=== PATIENT | male | born 1990 | race Caucasian/White ===

== ENCOUNTER 2020-01-28 18:19 | Emergency (ER) | payer MEDICAID, SELFPAY ==
[2020-01-28] VITALS (12 sets, daily range): BP systolic 141–152; BP diastolic 76–97; PULSE 60–83; RESP 18; TEMP 37.1; O2SAT 95–98
--- NOTE | 2020-01-28 18:40 | ED.GENADUL_ITS ---
Discharge Plan Disposition Patient Disposition: HOME Condition: Stable Discharge Details Chief Complaint: Nausea/Vomit/Diar Clinical Impression: Diarrhea, Abdominal pain Primary Care Provider: Unknown,Unknown ED Provider: June Mullins Home Meds and New Rx's Prescriptions: New dicyclomine 20 mg tablet 20 mg PO TID PRN (Reason: abdominal pain) Qty: 10 RF: 0 Continued loperamide [Imodium A-D] 2 mg Tablet See Rx Instructions .ROUTE .COMPLEX RF: 0 pantoprazole 40 mg Tablet,Delayed Release (Dr/Ec) 40 mg PO DAILY RF: 0 hyoscyamine sulfate [Oscimin] 0.125 mg Tablet 0.35 mg PO BID RF: 0 lamotrigine 100 mg Tablet 100 mg PO HS RF: 0 buspirone 15 mg Tablet 15 mg PO TID RF: 0 Discharge Instructions Instructions: Acute Diarrhea (ED), Abdominal Pain (ED) Additional Instructions: Drink plenty of fluids and get plenty of rest. Take the dicyclomine as needed and directed for abdominal pain. You can also take Tylenol as needed and directed for pain. Follow-up with your primary care doctor in 1 week. Return to the emergency department with any worsening or new concerning symptoms. Discharge Data Discharge Physician: June Mullins Medical Decision Making 1814 -- 29-year-old male with a history of GERD, IBS presents with diarrhea and abdominal pain for the past week. Blood pressure mildly hypertensive, otherwise vitals within normal limits. He is talkative and appears nontoxic. Abdomen soft but tender across lower aspect. Differential diagnosis includes colitis, gastroenteritis, IBS exacerbation. Will check screening labs, CT abdomen and pelvis and give a dose of Tylenol IV and Bentyl. 1940 --nursing unable to obtain labs. CT obtained and negative. 2009 --labs reviewed and unremarkable. Normal white blood cell count. Normal potassium. Patient reassessed -states he feels much better. We will send home with Bentyl tabs as well as prescription. Patient stated he needed toilet paper. He was given 2 rolls of toilet paper as well as crackers. He was placed on care management list to arrange for a follow-up appointment with his PCP. Usual and customary return precautions given prior to discharge. Medical Records Medical records reviewed: Yes I reviewed the patient's medical records. Imaging Data Radiologic Study: Radiologist's impression: CT Abdomen And Pelvis With Contrast Exam date and time: 01/28/2020 6:30 PM Age: 29 years old Clinical indication: Abdominal pain; Localized; Lower TECHNIQUE: Imaging protocol: Computed tomography of the abdomen and pelvis with intravenous contrast. Radiation optimization: All CT scans at this facility use at least one of these dose optimization techniques: automated exposure control; mA and/or kV adjustment per patient size (includes targeted exams where dose is matched to clinical indication); or iterative reconstruction. Contrast material: [id number]; Contrast volume: 100 ml; Contrast route: IV LEFT WRIST 20G; COMPARISON: No relevant prior studies available. FINDINGS: Liver: Normal. No mass. Gallbladder and bile ducts: Normal. No calcified stones. No ductal dilation. Pancreas: Normal. No ductal dilation. Spleen: Normal. No splenomegaly. Adrenals: Normal. No mass. Kidneys and ureters: Normal. No hydronephrosis. Stomach and bowel: Unremarkable. No obstruction. No mucosal thickening. Appendix: Normal appendix. Intraperitoneal space: Unremarkable. No free air. No significant fluid collection. Vasculature: Unremarkable. No abdominal aortic aneurysm. Lymph nodes: Unremarkable. No enlarged lymph nodes. Bladder: Unremarkable as visualized. Reproductive: Unremarkable as visualized. Bones/joints: Unremarkable. No acute fracture. Soft tissues: Unremarkable. IMPRESSION: No acute findings. Lab Data Lab results reviewed: Yes I reviewed the patient's lab results. Labs: Laboratory Tests Range/Units 01/28/20 01/28/20 19:34 19:34 WBC (4.4-10.8) k/cumm 6.98 RBC (4.50-6.00) m/cumm 5.18 Hgb (13.5-17.5) g/dL 15.0 Hct (40.0-50.0) % 43.0 MCV (80-95) fL 83.0 MCH (27.0-33.0) pg 29.0 MCHC (32.0-36.0) g/dL 34.9 RDW (11.8-14.1) % 12.1 Plt Count (130-400) x1000/uL 176 MPV (8.0-11.0) fL 9.5 Immature Gran % % 0.4 Neutrophils % 63.2 Lymphocytes % 26.1 Monocytes % 8.5 Eosinophils % 1.7 Basophils % 0.1 Absolute Neutrophils (1.2-6.7) k/cumm 4.41 Absolute Lymphocytes (1.2-3.4) k/cumm 1.82 Absolute Monocytes (0.11-0.7) k/cumm 0.59 Absolute Eosinophils (0.0-0.7) k/cumm 0.12 Absolute Basophils (0.0-0.2) k/cumm 0.01 Sodium (136-145) mmol/L 135 L Potassium (3.5-5.1) mmol/L 4.4 Chloride (98-107) mmol/L 102 Carbon Dioxide (21.0-32.0) mmol/L 24.8 Anion Gap (3-11) mmol/L 8.2 BUN (7-18) mg/dL 18 Creatinine (0.70-1.30) mg/dL 0.87 Estimated GFR/1.73 m2 (mL/min/1.73m2) >= 60.00 Glucose (74-106) mg/dL 96 Calcium (8.5-10.1) mg/dL 8.9 Total Bilirubin (0.2-1.0) mg/dL 0.8 AST (15-37) U/L 20 ALT (16-63) U/L 41 Alkaline Phosphatase (46-116) U/L 59 Total Protein (6.4-8.2) g/dL 6.8 Albumin (3.4-5.0) g/dL 3.8 Lipase (73-393) U/L 42 HPI General Mode of arrival: ambulatory . Date/Time Provider Initiated Documentation: 01/28/20 18:40 . Limitations to Documentation: no limitations . Information obtained by: patient . HPI Narrative: Patient is a 29-year-old male with a history of GERD and IBS who presents to the ED w/ a c/o multiple episodes of diarrhea over the past week. He states it is mainly been watery and brown. He states he is unable to count the amount of episodes he has had every day. He states he has a history of IBS and occasionally has diarrhea with this but states is much worse. He does admit to occasional lower abdominal pain but denies any at present. He denies any fever, nausea, vomiting, urinary symptoms. He denies any recent travel, recent antibiotics, recent exposure to coronavirus or recent COVID testing. Related Data Home Medications Medication Instructions Recorded Confirmed buspirone 15 mg PO TID 01/28/20 01/28/20 dicyclomine 20 mg PO TID PRN #10 tab 01/28/20 hyoscyamine sulfate [Oscimin] 0.35 mg PO BID 01/28/20 01/28/20 lamotrigine 100 mg PO HS 01/28/20 01/28/20 loperamide [Imodium A-D] See Rx Instructions .ROUTE .COMPLEX 01/28/20 01/28/20 pantoprazole 40 mg PO DAILY 01/28/20 01/28/20 Previous Rx's Medication Instructions Recorded dicyclomine 20 mg PO TID PRN #10 tab 01/28/20 General Stated Complaint: Nausea/Vomit/Diar SHERI: 3 Review of Systems All systems reviewed & are unremarkable except as noted in HPI and below Constitutional Constitutional: Reports as per HPI, Denies chills and Denies fever(s) Eyes Eyes: Denies blurry vision ENT Ears, Nose, Mouth, and Throat: Denies dizziness, Denies sore throat and Denies throat swelling Cardiovascular Cardiovascular: Denies chest pain and Denies dyspnea Respiratory Respiratory: Denies cough and Denies dyspnea Gastrointestinal Gastrointestinal: Reports abdominal pain, Reports diarrhea and Denies vomiting Genitourinary Genitourinary: Denies hematuria and Denies dysuria Musculoskeletal Musculoskeletal: Denies back pain and Denies numbness Integumentary/Breasts Skin/Breast: Denies lesions and Denies rash Neurologic Neurologic: Denies dizziness, Denies localized weakness and Denies numbness Allergic/Immunologic Allergic/Immunologic: Denies throat swelling [facility] Medical History (Updated 01/28/20 @ 20:09 by June Mullins DO) ADHD (Acute) Asperger's syndrome (Acute) GERD (gastroesophageal reflux disease) (Chronic) History of IBS (Acute) Surgical History No significant past surgical history (Acute) Social History Smoking/Tobacco Use Status: Never Alcohol Intake: current Alcohol Intake frequency: holidays/special occasions only Drug use: Occasionally Substance use type: marijuana Exam Const General: cooperative, healthy appearing and no acute distress HENMT Head: normal to inspection Face and sinus: normal facial exam Eyes General: appearance normal, both eyes and all related structures EOM: EOM intact bilaterally Neck Neck: normal visual inspection and No submandibular swelling Lymphatic: no lymphadenopathy noted Chest Chest: normal inspection of the chest and no tenderness Resp Effort & Inspection: normal respiratory effort and able to speak in complete sentences Auscultation: clear to auscultation bilaterally Cardio Rate: regular rate Rhythm: regular rhythm GI Inspection: normal to inspection and obesity Palpation: soft, not firm, not rigid and tender in the LLQ, in the RLQ and suprapubicly Auscultation: hypoactive bowel sounds Skin General skin exam: no rashes or lesions noted Neuro General: patient alert, patient awake and patient oriented x3 Cognition: normal cognition Speech: speech normal Motor: muscle tone normal throughout Sensory Exam: no sensory deficits noted Extrem General: normal to inspection, full ROM, capillary refill normal, no calf tenderness bilaterally and no edema Psych Appearance: grossly normal Mental Status: mental status grossly normal Speech and Movement: speech and movement normal Affect: normal affect Course Vital Signs Vital signs: Vital Signs Temperature 98.8 F 01/28/20 18:11 Pulse 83 01/28/20 18:11 Respiratory Rate 18 01/28/20 18:11 Blood Pressure 152/76 H 01/28/20 18:11 Pulse Oximetry 97 01/28/20 18:11 Temperature 98.8 F 01/28/20 18:11 Temperature Source Temporal Artery Scan 01/28/20 18:11 Pulse 83 01/28/20 18:11 Respiratory Rate 18 01/28/20 18:11 Respiratory Effort Non-Labored 01/28/20 18:13 Blood Pressure 152/76 H 01/28/20 18:11 Blood Pressure Position Sitting 01/28/20 18:11 Pulse Oximetry 97 01/28/20 18:11 Oxygen Delivery Method Room Air 01/28/20 18:11 Oxygen Flow Rate 0 01/28/20 18:11
[2020-01-28] MEDS: Omnipaque 350 MG/ML 100 ML BTL IJ (19:13)
[2020-01-28] MEDS: Normal Saline - Diluent 50 ML VIAL IV (19:13)
[2020-01-28] MEDS: Normal Saline Flush 10 ML SYR IVP (19:16)
--- NOTE | 2020-01-28 19:19 | DI.CT_ITS ---
EXAM: CT ABDOMEN PELVIS W CLINICAL HISTORY: lower abd pain, diarrhea TECHNIQUE: Imaging Protocol: Axial computed tomography images with coronal and sagittal reformatted images were created and reviewed CONTRAST MATERIAL: Intravenous: Omnipaque 350 Contrast volume:99 mL Oral: No COMPARISON: No exams were available for comparison FINDINGS: ABDOMEN: Lung Bases: Normal where visualized. Liver: Normal density. No measurable mass. Portal, Superior Mesenteric, and Splenic Veins: Unremarkable. Gallbladder and Biliary Tract: No radiodense calculus or dilation. Pancreas: Normal density, no abnormal calcifications or inflammatory process. Spleen: Normal. Adrenals: No masses seen. Kidneys: Normal size, contour and axis. No radiodense stones or obstructive uropathy. No masses seen. Abdominal Aorta: Abdominal portion non-dilated. Bowel: No obstruction or bowel wall thickening. No evidence of acute appendicitis. Peritoneal Cavity: No ascites, collection or mesenteric inflammatory response. Lymph Nodes: Within normal limits. Bones: Unremarkable. Soft Tissues: Unremarkable. PELVIS: Bladder: Symmetric distention, no gross wall thickening. Reproductive Organs: Unremarkable as visualized. Lymph Nodes: Within normal limits. Bones: Within normal limits. IMPRESSION: Unremarkable CT scan of the abdomen and pelvis. RADIATION DOSE DELIVERED: Total DLP DATA REPOSITORY: All CT scans at this facility are submitted to the National Radiology Data Registry (NRDR) Dose Index Registry (DIR) with the [employer] (ACR). RADIATION OPTIMIZATION: All CT scans at this facility use at least one of these dose optimization te chniques: automated exposure control; mA and/or kV adjustment per patient size (includes targeted exa ms where dose is matched to clinical indication); or iterative reconstruction.
[2020-01-28] MEDS: ACETAMINOPHEN 1,000 MG/100 ML BTL 400 MG IVPB (19:30)
--- NOTE | 2020-01-28 19:32 | DI.VRAD_ITS ---
PROCEDURE INFORMATION: Exam: CT Abdomen And Pelvis With Contrast Exam date and time: 01/28/2020 6:30 PM Age: 29 years old Clinical indication: Abdominal pain; Localized; Lower TECHNIQUE: Imaging protocol: Computed tomography of the abdomen and pelvis with intravenous contrast. Radiation optimization: All CT scans at this facility use at least one of these dose optimization techniques: automated exposure control; mA and/or kV adjustment per patient size (includes targeted exams where dose is matched to clinical indication); or iterative reconstruction. Contrast material: [id number]; Contrast volume: 100 ml; Contrast route: IV LEFT WRIST 20G; COMPARISON: No relevant prior studies available. FINDINGS: Liver: Normal. No mass. Gallbladder and bile ducts: Normal. No calcified stones. No ductal dilation. Pancreas: Normal. No ductal dilation. Spleen: Normal. No splenomegaly. Adrenals: Normal. No mass. Kidneys and ureters: Normal. No hydronephrosis. Stomach and bowel: Unremarkable. No obstruction. No mucosal thickening. Appendix: Normal appendix. Intraperitoneal space: Unremarkable. No free air. No significant fluid collection. Vasculature: Unremarkable. No abdominal aortic aneurysm. Lymph nodes: Unremarkable. No enlarged lymph nodes. Bladder: Unremarkable as visualized. Reproductive: Unremarkable as visualized. Bones/joints: Unremarkable. No acute fracture. Soft tissues: Unremarkable. IMPRESSION: No acute findings. Dictated and Authenticated by: Hugh Peck MD. Ordering:JERRY Watkins MD
[2020-01-28] MEDS: Dicyclomine 20 MG TAB PO (19:51)
[2020-01-28] MEDS: Normal Saline 1,000 ML 1000 ML IV (19:52)
[2020-01-28 20:01] LABS: ALT 41 U/L (16-63); AST 20 U/L (15-37); Albumin 3.8 g/dL (3.4-5.0); Alkaline Phosphatase 59 U/L (46-116); Anion Gap 8.2 mmol/L (3-11); BUN 18 mg/dL (7-18); Bilirubin, Total 0.8 mg/dL (0.2-1.0); CO2 24.8 mmol/L (21.0-32.0); CREATININE 0.87 mg/dL (0.70-1.30); Calcium 8.9 mg/dL (8.5-10.1); Chloride 102 mmol/L (98-107); Glucose 96 mg/dL (74-106); Lipase 42 U/L (73-393); Potassium 4.4 mmol/L (3.5-5.1); Sodium 135 mmol/L (136-145); Total Protein 6.8 g/dL (6.4-8.2)
[2020-01-28 20:07] LABS: Abs Immature Grans 0.03 k/cumm (0.0-0.09); Absolute Basophil Count 0.01 k/cumm (0.0-0.2); Absolute Eosinophil Count 0.12 k/cumm (0.0-0.7); Absolute Lymphocyte Count 1.82 k/cumm (1.2-3.4); Absolute Monocyte Count 0.59 k/cumm (0.11-0.7); Absolute Neutrophil Count 4.41 k/cumm (1.2-6.7); Basophils % 0.1; Eosinophils % 1.7; Immature Grans % 0.4 %; Lymphocytes % 26.1; Mean Corp. HGB Concentration 34.9 g/dL (32.0-36.0); Mean Platelet Volume 9.5 fL (8.0-11.0); Monocytes % 8.5; Neutrophils % 63.2; Platelet Count 176 x1000/uL (130-400); RBC 5.18 m/cumm (4.50-6.00); RBC Distribution Width 12.1 % (11.8-14.1); White Blood Cell Count 6.98 k/cumm (4.4-10.8)
[2020-01-28] MEDS: Dicyclomine 20 MG TAB 40 MG PO (20:28)
== END 2020-01-28 20:35 | disposition home or self-care (01) ==
LOC: ER 20:41
PROVIDERS: Emergency Provider Physician Assistant; PCP Nurse Practitioner Family
DX: K58.0 Irritable bowel syndrome with diarrhea (principal); R19.7 Diarrhea, unspecified; R10.30 Lower abdominal pain, unspecified
CPT/HCPCS: 36415; 80053; 83690; 96361; 96374; 99285; 74177; 85025; J0131; J3490

== ENCOUNTER 2020-02-10 03:36 | Emergency (ER) | payer MEDICAID, SELFPAY ==
[2020-02-10 03:38] VITALS: BP 145/83; PULSE 81; TEMP 36.8; O2SAT 96
--- NOTE | 2020-02-10 03:44 | ED.GENADUL_ITS ---
Discharge Plan Disposition Patient Disposition: HOME Condition: Good Discharge Details Chief Complaint: EyeProblem Clinical Impression: Subconjunctival hemorrhage of right eye, Diarrhea Primary Care Provider: Tiara Brizuela ED Provider: Kiet Ivory [place] Meds and New Rx's Prescriptions: Continued loperamide [Imodium A-D] 2 mg Tablet See Rx Instructions .ROUTE .COMPLEX RF: 0 pantoprazole 40 mg Tablet,Delayed Release (Dr/Ec) 40 mg PO DAILY RF: 0 hyoscyamine sulfate [Oscimin] 0.125 mg Tablet 0.35 mg PO BID RF: 0 buspirone 15 mg Tablet 15 mg PO TID RF: 0 Discharge Instructions Instructions: Subconjunctival Hemorrhage (ED), Acute Diarrhea (ED) Additional Instructions: There is nothing to do for this redness which is called subconjunctival hemorrhage. It will resolve on its own over a period of weeks. Return to ED for vision change. Continue current medications. The shoulder stay hydrated with plenty of fluids. You need to contact primary care for follow-up. You may bring stool sample back to the lab for testing. Return to ED if you develop persistent high fevers, persistent vomiting, bloody diarrhea, severe, persistent abdominal pain. Referrals: Tiara Brizuela [Primary Care Provider] - Medical Decision Making Patient's chief complaint of right eye redness is related to sub-conjunctival hemorrhage which will resolve over time on its own. This was likely brought on by his straining. He continues to have diarrhea. He has no related fever, vomiting, bloody stool. He did not follow-up with primary care as asked. Previous work-up revealed normal laboratory studies and normal CT scan. He has normal vital signs and looks well. He is tolerating oral intake. He was given an outpatient lab slip for stool studies including bacterial pathogen, Giardia, crypto. However, the diarrhea is most likely related to his irritable bowel. He will need to make arrangements to follow-up with his primary care in [place]. There is no further emergency evaluation for his diarrhea and there is no clinical evidence of dehydration. Return to ED for high fevers, inability to tolerate oral, new/worsening abdominal pain, bloody diarrhea. Medical Records Medical records reviewed: Yes I reviewed the patient's medical records. HPI General Mode of arrival: EMS . Date/Time Provider Initiated Documentation: 02/10/20 03:44 . Limitations to Documentation: no limitations . Information obtained by: patient . HPI Narrative: Patient presents to ED by ambulance with complaint of red eye. First noticed it yesterday but it is worse this morning. There is no pain or vision change. There is no trauma. He denies any sneezing or coughing but has been straining going to the bathroom. He was seen here on the for abdominal pain and diarrhea. He has a history of irritable bowel but does not typically have diarrhea for this long. He has had no fever. There is no vomiting. There is no bloody diarrhea. He denies any recent antibiotic use. He continues to take his medications which include hyoscymine and loperamide. He has not followed up with his primary care. Related Data Home Medications Medication Instructions Recorded Confirmed buspirone 15 mg PO TID 01/28/20 02/10/20 hyoscyamine sulfate [Oscimin] 0.35 mg PO BID 01/28/20 02/10/20 loperamide [Imodium A-D] See Rx Instructions .ROUTE .COMPLEX 01/28/20 02/10/20 pantoprazole 40 mg PO DAILY 01/28/20 02/10/20 Allergies Allergy/AdvReac Type Severity Reaction Status Date / Time aripiprazole [From Abilify] Allergy Unknown Unverified 02/10/20 04:25 aspirin Allergy Unknown Unverified 02/10/20 04:25 ibuprofen Allergy Unknown Unverified 02/10/20 04:25 methylphenidate Allergy Unknown Unverified 02/10/20 04:25 [From Concerta] paroxetine [From Paxil] Allergy Unknown Unverified 02/10/20 04:25 General Stated Complaint: EyeProblem SHERI: 4 Review of Systems Constitutional Constitutional: Denies fever(s) Eyes Eyes: Denies blurry vision, Denies change in vision and Denies eye pain Gastrointestinal Gastrointestinal: Denies hematochezia, Reports cramping, Reports diarrhea, Denies nausea and Denies vomiting [facility] Medical History ADHD (Acute) Asperger's syndrome (Acute) GERD (gastroesophageal reflux disease) (Chronic) History of IBS (Acute) Surgical History No significant past surgical history (Acute) Social History Smoking/Tobacco Use Status: Never Alcohol Intake: current Alcohol Intake frequency: holidays/special occasions only Drug use: Rarely Substance use type: marijuana Do you feel safe at home: Yes Exam Narrative Exam Narrative: Vitals: Afebrile. Blood pressure little up. Heart rate normal. Oxygen saturations on room air normal. Const: Obese male in NAD. HEENT: NC/AT. Normal facial exam. Eyes: Right sub-conjunctival hemorrhage noted. No conjunctival injection. Pupils equal round reactive to light. Extraocular muscles intact. Neck: Supple. Trachea midline. Lungs: Normal respiratory effort. GI: Soft and ND. Neuro: A+O x 3. Normal speech, mentation, gait. Cranial nerves II - XII grossly intact. No gross motor or sensory deficit. Course Vital Signs Vital signs: Vital Signs Temperature 98.2 F 02/10/20 03:38 Pulse 81 02/10/20 03:38 Blood Pressure 145/83 H 02/10/20 03:38 Pulse Oximetry 96 02/10/20 03:38 Temperature 98.2 F 02/10/20 03:38 Temperature Source Skin 02/10/20 03:38 Pulse 81 02/10/20 03:38 Blood Pressure 145/83 H 02/10/20 03:38 Blood Pressure Position Sitting 02/10/20 03:38 Pulse Oximetry 96 02/10/20 03:38 Oxygen Delivery Method Room Air 02/10/20 03:38 Oxygen Flow Rate 0 02/10/20 03:38
[2020-02-10 05:36] VITALS: BP 132/93; PULSE 71; RESP 18; TEMP 36.6; O2SAT 99
== END 2020-02-10 05:49 | disposition home or self-care (01) ==
LOC: ER 04:24
PROVIDERS: Emergency Provider Emergency Medicine; PCP Nurse Practitioner Family
DX: H11.31 Conjunctival hemorrhage, right eye (principal); K58.0 Irritable bowel syndrome with diarrhea
CPT/HCPCS: 99283

== ENCOUNTER 2020-02-16 11:29 | Emergency (ER) | payer MEDICAID, SELFPAY ==
[2020-02-16 11:35] VITALS: BP 116/101; PULSE 83; RESP 18; TEMP 36.7; O2SAT 97
--- NOTE | 2020-02-16 11:49 | W.ED.GENAD ---
Discharge Plan Disposition Patient Disposition: HOME Condition: Stable Discharge Details Chief Complaint: RashLesion Clinical Impression: Dermatitis Primary Care Provider: Tiara Brizuela ED Provider: Ezequiel Ignacio Home Meds and New Rx's Prescriptions: New prednisone 20 mg tablet 40 mg PO DAILY 5 Days Qty: 10 RF: 0 Continued loperamide [Imodium A-D] 2 mg Tablet See Rx Instructions .ROUTE .COMPLEX RF: 0 pantoprazole 40 mg Tablet,Delayed Release (Dr/Ec) 40 mg PO DAILY RF: 0 hyoscyamine sulfate [Oscimin] 0.125 mg Tablet 0.35 mg PO BID RF: 0 buspirone 15 mg Tablet 15 mg PO TID RF: 0 simvastatin [Zocor] 20 mg tablet 20 mg PO DAILY RF: 0 hydroxyzine HCl 25 mg tablet 25 mg PO PRN PRNRF: 0 Discharge Instructions Instructions: Dermatitis (ED) Additional Instructions: Please take prednisone as prescribed. Apply the provided Bactroban to area 3 times daily for 5 to 7 days time. May cover loosely with a dressing. Return for any acute concerns. Continue your regularly prescribed medications. Medical Decision Making 29-year-old male presents from home with what appears to be an plant induced dermatitis of the left popliteal fossa. He is not systemically ill in any way. There is a slight crusting to the area likely from excoriations, will treat with mupirocin as topical barrier and to mcfadden off a staph infection. We will treat the allergic component with a short burst of systemic prednisone. He understands homecare and return precautions. Stable for discharge to home at this time. HPI General Mode of arrival: ambulatory. Date/Time Provider Initiated Documentation: 02/16/20 11:30. Limitations to Documentation: no limitations. Information obtained by: patient. History of Present Illness 29 year old M presents to the emergency department with the chief complaint of Itching left leg rash, described as mild, Quality is described as dull and constant, and is localized to the left and lower extremity. Patient reports no radiation. Patient started experiencing this day(s) and it has been constant. No relieving factors improve symptom(s), No exacerbating factors reported . Patient notes no other symptoms.; denies fever/chills and shortness of breath. Patient did receive the following treatments prior to arrival, none Related Data Home Medications Medication Instructions Recorded Confirmed buspirone 15 mg PO TID 01/28/20 02/16/20 hyoscyamine sulfate [Oscimin] 0.35 mg PO BID 01/28/20 02/16/20 loperamide [Imodium A-D] See Rx Instructions .ROUTE .COMPLEX 01/28/20 02/16/20 pantoprazole 40 mg PO DAILY 01/28/20 02/16/20 hydroxyzine HCl 25 mg PO PRN PRN 02/16/20 02/16/20 prednisone 40 mg PO DAILY 5 Days #10 tab 02/16/20 simvastatin [Zocor] 20 mg PO DAILY 02/16/20 02/16/20 Previous Rx's Medication Instructions Recorded prednisone 40 mg PO DAILY 5 Days #10 tab 02/16/20 Allergies Allergy/AdvReac Type Severity Reaction Status Date / Time aripiprazole [From Abilify] Allergy Unknown Unverified 02/16/20 11:42 aspirin Allergy Unknown Unverified 02/16/20 11:42 ibuprofen Allergy Unknown Unverified 02/16/20 11:42 methylphenidate Allergy Unknown Unverified 02/16/20 11:42 [From Concerta] paroxetine [From Paxil] Allergy Unknown Unverified 02/16/20 11:42 General Stated Complaint: RashLesion SHERI: 4 Review of Systems Narrative: No known exposure. No trouble breathing, no change to voice or swallowing ability. 5 systems reviewed and otherwise negative [facility] Medical History ADHD (Acute) Asperger's syndrome (Acute) GERD (gastroesophageal reflux disease) (Chronic) History of IBS (Acute) Social History Smoking/Tobacco Use Status: Never Alcohol Intake: current Alcohol Intake frequency: holidays/special occasions only Drug use: Rarely Substance use type: marijuana Do you feel safe at home: Yes Exam Narrative Exam Narrative: GEN: awake, alert, oriented 3. Pleasant, well groomed, interactive. HEAD: Normocephalic, atraumatic ENT: Mucous membranes moist, oropharynx unremarkable, External ear exam unremarkable EYES: PERRL, EOMI, right sub-conjunctival hemorrhage NECK: Full ROM, no WILLIAMS, no menigismus CHEST/RESP: No respiratory distress EXT: Full ROM, no edema, left popliteal fossa with slightly crusted erythematous rash. Neuro: Grossly normal neurologic exam, conversant, interactive. Psych: Speech fluent, thoughts congruent, affect normal Course Vital Signs Vital signs: Vital Signs Temperature 36.7 C 02/16/20 11:35 Pulse 83 02/16/20 11:35 Respiratory Rate 18 02/16/20 11:35 Blood Pressure 116/101 H 02/16/20 11:35 Pulse Oximetry 97 02/16/20 11:35 Temperature 36.7 C 02/16/20 11:35 Temperature Source Temporal Artery Scan 02/16/20 11:35 Pulse 83 02/16/20 11:35 Respiratory Rate 18 02/16/20 11:35 Respiratory Effort Non-Labored 02/16/20 11:41 Blood Pressure 116/101 H 02/16/20 11:35 Blood Pressure Position Sitting 02/16/20 11:35 Pulse Oximetry 97 02/16/20 11:35 Oxygen Delivery Method Room Air 02/16/20 11:35 Oxygen Flow Rate 0 02/16/20 11:35 Pain Level 0 02/16/20 11:35
[2020-02-16 11:59] VITALS: BP 152/96
[2020-02-16] MEDS: predniSONE 20 MG TAB 40 MG PO (12:08)
== END 2020-02-16 12:20 | disposition home or self-care (01) ==
PROVIDERS: Emergency Provider Emergency Medicine; PCP Nurse Practitioner Family
DX: L23.7 Allergic contact dermatitis due to plants, except food (principal)
CPT/HCPCS: 99283; J7512

== ENCOUNTER 2020-02-17 09:15 | Emergency (ER) | payer MEDICAID, SELFPAY ==
[2020-02-17 09:17] VITALS: BP 144/103; PULSE 77; RESP 16; TEMP 36.7; O2SAT 96
--- NOTE | 2020-02-17 09:36 | ED.GENADUL_ITS ---
Discharge Plan Disposition Patient Disposition: HOME Condition: Stable Discharge Details Chief Complaint: RashLesion Clinical Impression: Dermatitis Primary Care Provider: Tiara Brizuela ED Provider: Taylor Mejia Home Meds and New Rx's Prescriptions: New triamcinolone acetonide 0.1 % cream 1 applic TP BID 5 Days Qty: 15 RF: 0 Continued loperamide [Imodium A-D] 2 mg Tablet See Rx Instructions .ROUTE .COMPLEX RF: 0 pantoprazole 40 mg Tablet,Delayed Release (Dr/Ec) 40 mg PO DAILY RF: 0 hyoscyamine sulfate [Oscimin] 0.125 mg Tablet 0.35 mg PO BID RF: 0 buspirone 15 mg Tablet 15 mg PO TID RF: 0 simvastatin [Zocor] 20 mg tablet 20 mg PO DAILY RF: 0 hydroxyzine HCl 25 mg tablet 25 mg PO PRN PRNRF: 0 prednisone 20 mg tablet 40 mg PO DAILY 5 Days Qty: 10 RF: 0 mupirocin 2 % Ointment 1 applic TOPICAL TID RF: 0 Discharge Instructions Instructions: Dermatitis (ED) Additional Instructions: Try new topical cream triamcinolone for 5 days. Take prednisone as previously prescribed. If rash gets worse, you may try the mupirocin cream as previously prescribed. Please allow 2 to 3 days for the creams to work. Referrals: Tiara Brizuela [Primary Care Provider] - 3 days Discharge Data Discharge Date/Time-TO BE ENTERED AT DEPARTURE: 02/17/20 10:35 Medical Decision Making 29-year-old male with a history of Asperger's and ADHD presents for the second in a row for the same complaint of rash. Patient states that it got worse overnight and spread and he is concerned. Patient was seen yesterday and prescribed mupirocin topical ointment and 40 mg prednisone p.o. daily. Patient had first dose of each and has not picked up the prednisone from the pharmacy yet. He has not tried at the mupirocin this morning yet. According to staffing operations manager the rash is the same as yesterday has not spread and appears unchanged. Upon initial exam patient seems agitated and anxious, no trouble breathing no shortness of breath no wheezing no fever no drainage noted from the rash. Care management involved in patient's care to determine primary care provider follow- up since patient has been seen here multiple times the last 2 weeks. Patient is from [facility] is currently staying at a motel in [place]. Comes in alone topical cream prescribed instructed patient to try for 5 days. If any worsening or no improvement after 2 to 3 days of treatment to be in the mupirocin treatment as previously prescribed. Instructed to continue the prednisone as previously instructed. 09 50: Libia with care management at bedside to speak with patient, attempting to arrange transport back home into the pharmacy with [facility] versus the bus. Patient also refusing to establish primary care locally, she is going to contact [facility] regarding follow-up for patient. Care plan obtained and plan is to have mental health reach out to patient later in the week. Differential diagnosis includes but not limited to contact dermatitis, poison oak dermatitis or poison ailyn dermatitis. Patient to be transported via [facility] care management currently working on transport home. Patient hemodynamically stable blood pressure is 144/103 which is elevated do I think patient's agitation and anxiety and review of patient's medical records he is consistently hypertensive at baseline. Will refer to PCP. This text was generated using [employer] system, please disregard any oddities of phrase or misspellings. HPI General Mode of arrival: EMS . Date/Time Provider Initiated Documentation: 02/17/20 09:16 . Limitations to Documentation: physical limitation (Asperger's, ADHD) . Information obtained by: patient and EMS . HPI Narrative: 29-year-old male with a history of Asperger's and ADHD presents for the second in a row for the same complaint of rash. Patient states that it got worse overnight and spread and he is concerned. Patient was seen yesterday and prescribed mupirocin topical ointment and 40 mg prednisone p.o. daily. Patient had first dose of each and has not picked up the prednisone from the pharmacy yet. He has not tried at the mupirocin this morning yet. According to staffing operations manager the rash is the same as yesterday has not spread and appears unchanged. Upon initial exam patient seems agitated and anxious, no trouble breathing no shortness of breath no wheezing no fever no drainage noted from the rash. Care management involved in patient's care to determine primary care provider follow-up since patient has been seen here multiple times the last 2 weeks. Related Data Home Medications Medication Instructions Recorded Confirmed buspirone 15 mg PO TID 01/28/20 02/17/20 hyoscyamine sulfate [Oscimin] 0.35 mg PO BID 01/28/20 02/17/20 loperamide [Imodium A-D] See Rx Instructions .ROUTE .COMPLEX 01/28/20 02/17/20 pantoprazole 40 mg PO DAILY 01/28/20 02/17/20 hydroxyzine HCl 25 mg PO PRN PRN 02/16/20 02/17/20 prednisone 40 mg PO DAILY 5 Days #10 tab 02/16/20 02/17/20 simvastatin [Zocor] 20 mg PO DAILY 02/16/20 02/17/20 mupirocin 1 applic TOPICAL TID 02/17/20 02/17/20 triamcinolone acetonide 1 applic TP BID 5 Days #15 gm 02/17/20 Previous Rx's Medication Instructions Recorded prednisone 40 mg PO DAILY 5 Days #10 tab 02/16/20 triamcinolone acetonide 1 applic TP BID 5 Days #15 gm 02/17/20 Allergies Allergy/AdvReac Type Severity Reaction Status Date / Time aripiprazole [From Abilify] Allergy Unknown Unverified 02/17/20 09:23 aspirin Allergy Unknown Unverified 02/17/20 09:23 ibuprofen Allergy Unknown Unverified 02/17/20 09:23 methylphenidate Allergy Unknown Unverified 02/17/20 09:23 [From Concerta] paroxetine [From Paxil] Allergy Unknown Unverified 02/17/20 09:23 General Stated Complaint: RashLesion SHERI: 4 Review of Systems All systems reviewed & are unremarkable except as noted in HPI and below Constitutional Constitutional: Reports as per HPI and Reports difficulty sleeping PFSH Social History Smoking/Tobacco Use Status: Never Alcohol Intake: current Alcohol Intake frequency: holidays/special occasions only Drug use: Rarely Substance use type: marijuana Do you feel safe at home: Yes Exam Narrative Exam Narrative: Constitutional: At baseline, appears stated age. Obese body habitus. Head: Normocephalic, no trauma. Eyes: Pupils PERRLA, Red reflex noted, EOM's intact. Eyelids symmetrical without lesions, discharge, or swelling. Has a right some conjunctival hemorrhage ENT: Bilateral TM's WNL, External ear normal to inspection, no mastoid TTP, swelling, or erythema, Nasal turbinates WNL, no nasal discharge. Normal dentition, Posterior pharynx WNL, no exudate. Dry mucous membranes Chest: RRR, Normal S1, S2, distal pulses intact. Resp: Lungs clear to auscultation bilaterally, no wheezes, rales, or rhonchi. Musculoskeletal: Normal gait, 5/5 strength to all four extremities. Skin: Does have a red raised maculopapular rash noted with clearly demarcated edges to left upper arm right dorsum of his hand and left popliteal space up to his thigh. Is a sandpaperlike rash. No surrounding erythema, no drainage no signs of infection. Capillary refill less than 2 sec. Neurologic: Cranial nerves II-XII intact. Alert and oriented DTR's intact. Hematologic/Lymphatic: No ecchymosis, no lymphadenopathy. Psych Speech and Movement: agitated and pressured speech Mood: irritable mood Affect: anxious affect Insight: limited (Due to physical history of Asperger's and ADHD) Judgment: limited Course Vital Signs Vital signs: Vital Signs Temperature 36.7 C 02/17/20 09:17 Pulse 77 02/17/20 09:17 Respiratory Rate 16 02/17/20 09:17 Blood Pressure 144/103 H 02/17/20 09:17 Pulse Oximetry 96 02/17/20 09:17 Temperature 36.7 C 02/17/20 09:17 Temperature Source Skin 02/17/20 09:17 Pulse 77 02/17/20 09:17 Respiratory Rate 16 02/17/20 09:17 Respiratory Effort 02/17/20 09:24 Blood Pressure 144/103 H 02/17/20 09:17 Blood Pressure Position Sitting 02/17/20 09:17 Pulse Oximetry 96 02/17/20 09:17 Oxygen Delivery Method Room Air 02/17/20 09:17 Oxygen Flow Rate 0 02/17/20 09:17
[2020-02-17 09:49] VITALS: BP 130/90
[2020-02-17 10:07] VITALS: BP 130/90
--- NOTE | 2020-02-17 10:13 | PDOC.ERCMPRO ---
- If Service Date Differs Date of service: 02/17/20 Time of Service: 10:13 Care Management Progress Note CM meets with Luis Carlos to offer assistance in finding a local PCP, as Luis Carlos's physician is in [place], [place]. Since moving to [place] in January of this year, Luis Carlos has presented in the ED on several occasions for complaints that could have been handled by his PCP. Luis Carlos reports he is currently homeless and is living at the [facility] in [place]. He hopes to eventually be able to find an apartment closer to [place] where he has family and where he has established care with a medical provider, a metal forger's assistant, and a therapist. He goes on to state that he has called local healthcare facilities and that the soonest available appointment would be in a month and a half, which he feels is too long of a wait to see a doctor. He reports that he has had no difficulty getting to his current doctor's office in [place], as he has been able to use [facility]. He also shares that he is trying to transfer his psychiatric care from [facility] [place] to [facility] in [facility], but has only recently signed a release for the transfer of his records. CM will contact [facility] to facilitate Luis Carlos establishing services through their agency.
== END 2020-02-17 10:35 | disposition home or self-care (01) ==
PROVIDERS: Emergency Provider Registered Nurse Emergency; PCP Nurse Practitioner Family
DX: L23.7 Allergic contact dermatitis due to plants, except food (principal); R45.1 Restlessness and agitation; F84.5 Asperger's syndrome
CPT/HCPCS: 99283

== ENCOUNTER 2020-02-19 15:18 | Emergency (ER) | payer MEDICAID, SELFPAY ==
--- NOTE | 2020-02-19 15:27 | ED.GENADUL_ITS ---
Discharge Plan Disposition Patient Disposition: HOME Condition: Stable Discharge Details Chief Complaint: RashLesion Clinical Impression: Dermatitis Primary Care Provider: Tiara Brizuela ED Provider: Ezequiel Ignacio Home Meds and New Rx's Prescriptions: New famotidine 20 mg tablet 20 mg PO BID Qty: 20 RF: 0 loratadine [Claritin] 10 mg tablet 10 mg PO DAILY Qty: 14 RF: 0 prednisone 10 mg tablet 10 mg PO DAILY Qty: 40 RF: 0 Continued triamcinolone acetonide 0.1 % cream 1 applic TP BID 5 Days Qty: 15 RF: 0 loperamide [Imodium A-D] 2 mg Tablet See Rx Instructions .ROUTE .COMPLEX RF: 0 pantoprazole 40 mg Tablet,Delayed Release (Dr/Ec) 40 mg PO DAILY RF: 0 hyoscyamine sulfate [Oscimin] 0.125 mg Tablet 0.35 mg PO BID RF: 0 buspirone 15 mg Tablet 15 mg PO TID RF: 0 simvastatin [Zocor] 20 mg tablet 20 mg PO DAILY RF: 0 hydroxyzine HCl 25 mg tablet 25 mg PO PRN PRNRF: 0 No Action prednisone 20 mg tablet 40 mg PO DAILY 5 Days Qty: 10 RF: 0 mupirocin 2 % Ointment 1 applic TOPICAL TID RF: 0 Discharge Instructions Instructions: Dermatitis (ED) Additional Instructions: Please begin a longer dose of prednisone by prescription today that will include a taper. Please begin Claritin once daily, you were given this dose today. Please begin famotidine twice daily, this will be filled by prescription. Continue the triamcinolone as you have been. I have provided you a refill. Please follow-up in clinic for recheck next week we will ask care management to make you a follow-up appointment. Medical Decision Making 29-year-old male presents for third visit of itching rash developed last week on his lower extremity. It has spread since I first saw him on February 15, he was seen again on February 16 and has been taking prednisone and triamcinolone cream. He admits to some inconsistency with taking the prednisone but is been vigilant with the cream. He has no spread to mucous membranes, chest or abdomen. This does appear to be an allergic dermatitis. I will place him on a prolonged burst and then taper of prednisone, we will add Claritin as well as famotidine for its antihistamine properties. We will refer him back to primary care for recheck. HPI General Mode of arrival: EMS . Date/Time Provider Initiated Documentation: 02/19/20 15:32 . Limitations to Documentation: no limitations . Information obtained by: patient and EMS . History of Present Illness 29 year old M presents to the emergency department with the chief complaint of Persistent rash. States he was referred in by primary care, so called 911 , described as mild, and is localized to the lower extremity. Patient reports no radiation. Patient started experiencing this day(s) and it has been constant. No relieving factors improve symptom(s), No exacerbating factors reported . Patient notes denies fever/chills and nausea/vomiting. Patient did receive the following treatments prior to arrival, other (Was prescribed prednisone and Bactroban) Related Data Home Medications Medication Instructions Recorded Confirmed buspirone 15 mg PO TID 01/28/20 02/19/20 hyoscyamine sulfate [Oscimin] 0.35 mg PO BID 01/28/20 02/19/20 loperamide [Imodium A-D] See Rx Instructions .ROUTE .COMPLEX 01/28/20 02/19/20 pantoprazole 40 mg PO DAILY 01/28/20 02/19/20 hydroxyzine HCl 25 mg PO PRN PRN 02/16/20 02/19/20 prednisone 40 mg PO DAILY 5 Days #10 tab 02/16/20 02/19/20 simvastatin [Zocor] 20 mg PO DAILY 02/16/20 02/19/20 mupirocin 1 applic TOPICAL TID 02/17/20 02/19/20 famotidine 20 mg PO BID #20 tab 02/19/20 loratadine [Claritin] 10 mg PO DAILY #14 tab 02/19/20 prednisone 10 mg PO DAILY #40 tab 02/19/20 triamcinolone acetonide 1 applic TP BID 5 Days #15 gm 02/19/20 Previous Rx's Medication Instructions Recorded prednisone 40 mg PO DAILY 5 Days #10 tab 02/16/20 famotidine 20 mg PO BID #20 tab 02/19/20 loratadine [Claritin] 10 mg PO DAILY #14 tab 02/19/20 prednisone 10 mg PO DAILY #40 tab 02/19/20 triamcinolone acetonide 1 applic TP BID 5 Days #15 gm 02/19/20 Allergies Allergy/AdvReac Type Severity Reaction Status Date / Time aripiprazole [From Abilify] Allergy Unknown Unverified 02/19/20 15:35 aspirin Allergy Unknown Unverified 02/19/20 15:35 ibuprofen Allergy Unknown Unverified 02/19/20 15:35 methylphenidate Allergy Unknown Unverified 02/19/20 15:35 [From Concerta] paroxetine [From Paxil] Allergy Unknown Unverified 02/19/20 15:35 General SHERI: 4 Review of Systems Narrative: See HPI. Chronic sub-conjunctival hemorrhage. No fever or vomiting. Taking regular medications. 4 systems reviewed and otherwise negative. [facility] Medical History ADHD (Acute) Asperger's syndrome (Acute) GERD (gastroesophageal reflux disease) (Chronic) History of IBS (Acute) Social History Smoking/Tobacco Use Status: Never Alcohol Intake: current Alcohol Intake frequency: holidays/special occasions only Drug use: Rarely Substance use type: marijuana Do you feel safe at home: Yes Exam Narrative Exam Narrative: GEN: awake, alert. Pleasant, well groomed, interactive. HEAD: Normocephalic, atraumatic ENT: Mucous membranes moist, oropharynx unremarkable, External ear exam unremarkable EYES: PERRL, EOMI NECK: Full ROM, no WILLIAMS, no menigismus CHEST/RESP: Nontender, clear to auscultation bilateral, no wheeze/rhonchi/rales CARDIOVASCULAR: RRR EXT: Full ROM, there is a raised, erythematous, slightly scaled rash present on both legs in patchy areas Neuro: Grossly normal neurologic exam, conversant, interactive. Psych: Speech fluent, thoughts congruent, affect normal
[2020-02-19 15:32] VITALS: BP 138/85; PULSE 87; RESP 18; TEMP 37.1; O2SAT 97
[2020-02-19] MEDS: predniSONE 20 MG TAB 60 MG PO (16:08)
[2020-02-19] MEDS: Loratidine 10 MG TAB PO (16:08)
--- NOTE | 2020-02-19 18:31 | NUR.NOTE ---
Nursing Note: Referral to pcp faxed to care management LIBL
--- NOTE | 2020-02-21 17:35 | PDOC.ERCMPRO ---
- If Service Date Differs Date of service: 02/21/20 Time of Service: 17:35 Care Management Progress Note Referral was sent from ED to CM regarding follow up appointment for Luis Carlos. He has an established PCP in [place], [place]. Per ED note, Luis Carlos is new to this area and living at the [facility] in [place] currently. He has been to the ED 5 times in the past month. ED provider requested follow up with his PCP in 1-2 weeks. CM called [facility] and was able to obtain an appointment for 03/07/20 at 15:00. CM contacted Luis Carlos who stated that he could set up his own appointment that will fit in his schedule. CM informed him of the appointment already made, and he stated that he will call and change it if he cannot make it to this appointment. KATLYN faxed the ED note to his PCP, at the request of the [facility].
== END 2020-02-19 16:23 | disposition home or self-care (01) ==
PROVIDERS: Emergency Provider Emergency Medicine; PCP Nurse Practitioner Family
DX: L23.89 Allergic contact dermatitis due to other agents (principal)
CPT/HCPCS: 99283; J7512